=== PATIENT | female | born 1970 | race Caucasian/White ===

== ENCOUNTER 2019-02-28 12:14 | Emergency (ER) | payer BC ==
--- OUTSIDE RECORDS SUMMARY | 2019-02-28 12:20 | XMS REPORT | Continuity of Care Document ---
:1970 External Reference #:[id number] Author Name Leonila Foley MD Address [address] [place] [address] Problems Active Problems Provider Date Asthma without status asthmaticus Onset: 10/28/2018 Family history of polyp of colon Onset: 10/28/2018 Right lower quadrant pain Onset: 10/28/2018 Inactive Problems Abdominal pain Onset: 10/03/2018 Inactive: 10/03/2018 Right upper quadrant pain Onset: 10/01/2018 Inactive: 10/01/2018 Social History Type Date Description Comments Sex Unknown Tobacco Use Start: Unknown Patient has never smoked Smoking Status Reviewed: 02/22/19 Patient has never smoked Allergies, Adverse Reactions, Alerts Description No Known Drug Allergies Medications Active Medications SIG Qnty Indications Ordering Provider Date Albuterol Sulfate Inhale 2 Puffs 25.5units Leonila Foley, 2018 HFA By Mouth Every MD 108(90Base) 4 Hours as mcg/Act Aerosol Needed Flovent HFA Inhalation; 36units Unknown 08/26/2017 Inhale 2 Puffs 110mcg/Act Aerosol By Mouth Two Times Daily Lulu Allergy 1 daily Oral 30tabs Unknown 10/27/2014 180mg Tablets Clobetasol Unknown Propionate 0.05% Ointment History Medications Peg 3350/Electrolytes use as directed 4000units R10.31 Unknown 10/28/2018 - 240gm 02/15/2019 Solution Rec Immunizations CPT Code Status Date Vaccine Lot # [id number] Given 12/19/2018 Flu < 65 years 27818 Given 07/22/2018 MMR Vaccine 06057 Given 12/02/2017 Influenza Virus Vaccine, Quadrivalent, Split, Im Use 0.25ML 66221 Given 12/02/2017 Influenza Virus Vaccine, Quadrivalent, Split, Im Use 0.25ML 00165 Given 12/02/2017 Influenza Virus Vaccine, Quadrivalent, Split, Im Use 0.25ML 86575 Given 12/02/2017 Flu < 65 years 84140 Given 12/02/2017 Influenza Virus Vaccine, Quadrivalent, Split, Preservative Free 32888 Given 12/02/2017 Flumist 82749 Given 12/02/2017 Flu High Dose 02309 Given 12/02/2017 Influenza Virus Vaccine, Split, Preserv Free, Intradermal Use 96573 Given 01/12/2017 Influenza Virus Vaccine, Split, Preserv Free, Intradermal Use 84019 Given 01/12/2017 Flu High Dose 29281 Given 01/12/2017 Flumist 94352 Given 01/12/2017 Influenza Virus Vaccine, Quadrivalent, Split, Preservative Free 88065 Given 01/12/2017 Flu < 65 years 84970 Given 01/12/2017 Influenza Virus Vaccine, Quadrivalent, Split, Im Use 0.25ML 55956 Given 01/12/2017 Influenza Virus Vaccine, Quadrivalent, Split, Im Use 0.25ML 90538 Given 01/12/2017 Influenza Virus Vaccine, Quadrivalent, Split, Im Use 0.25ML 58401 Given 12/17/2015 Influenza Virus Vaccine, Quadrivalent, Split, Im Use 0.25ML 77911 Given 12/17/2015 Influenza Virus Vaccine, Quadrivalent, Split, Im Use 0.25ML 50450 Given 12/17/2015 Influenza Virus Vaccine, Quadrivalent, Split, Im Use 0.25ML 39832 Given 12/17/2015 Flu < 65 years 28990 Given 12/17/2015 Influenza Virus Vaccine, Quadrivalent, Split, Preservative Free 59576 Given 12/17/2015 Flumist 36209 Given 12/17/2015 Flu High Dose 25359 Given 12/17/2015 Influenza Virus Vaccine, Split, Preserv Free, Intradermal Use 82216 Given 12/31/2014 Flu High Dose 84918 Given 12/31/2014 Flumist 92856 Given 12/31/2014 Influenza Virus Vaccine, Quadrivalent, Split, Preservative Free 73449 Given 12/31/2014 Flu < 65 years 97524 Given 12/31/2014 Influenza Virus Vaccine, Quadrivalent, Split, Im Use 0.25ML 00469 Given 12/31/2014 Influenza Virus Vaccine, Quadrivalent, Split, Im Use 0.25ML 86265 Given 12/31/2014 Influenza Virus Vaccine, Quadrivalent, Split, Im Use 0.25ML 75085 Given 09/13/2013 Hepatitis B >=20 yrs, Energix or Recombivax 13682 Given 06/07/2013 Hepatitis B >=20 yrs, Energix or Recombivax 89119 Given 05/03/2013 Hepatitis B >=20 yrs, Energix or Recombivax 05547 Given 12/11/2012 Influenza Virus Vaccine Split Virus Intramuscular Use 0.5ML 54006 Given 12/11/2012 Flu High Dose 48053 Given 12/11/2012 Flumist 13085 Given 12/11/2012 Influenza Virus Vaccine, Quadrivalent, Split, Preservative Free 27455 Given 12/11/2012 Flu < 65 years 53084 Given 12/11/2012 Influenza Virus Vaccine, Quadrivalent, Split, Im Use 0.25ML 38034 Given 12/11/2012 Influenza Virus Vaccine, Quadrivalent, Split, Im Use 0.25ML 04242 Given 12/11/2012 Influenza Virus Vaccine, Quadrivalent, Split, Im Use 0.25ML 31964 Given 12/11/2012 Influenza Virus Vaccine, Quadrivalent, Split, Im Use 0.25ML 98478 Given 10/30/2011 Tdap - Boostrix/Adacel 24990 Given 12/05/2009 Influenza Virus Vaccine, Quadrivalent, Split, Im Use 0.25ML 05867 Given 12/05/2009 Influenza Virus Vaccine Split Virus Intramuscular Use 0.5ML 76791 Given 01/25/2009 Influenza Virus Vaccine Split Virus Intramuscular Use 0.5ML 62670 Given 01/25/2009 Influenza Virus Vaccine, Quadrivalent, Split, Im Use 0.25ML 24434 Given 01/25/2009 Influenza Virus Vaccine, Quadrivalent, Split, Im Use 0.25ML 84962 Given 01/05/2009 Influenza Virus Vaccine, Quadrivalent, Split, Im Use 0.25ML 15963 Given 01/05/2009 Influenza Vaccine, Pandemic Formulation, H1N1 17953 Given 01/05/2009 H1N1 Immunization Admin (Intramuscular,Intranasal) Inc Counseling 73511 Given 04/06/2008 Pneumovax - for >=2years - PPSV23 79697 Given 01/16/2008 Influenza Virus Vaccine, Quadrivalent, Split, Im Use 0.25ML 83730 Given 01/15/2007 Influenza Virus Vaccine, Quadrivalent, Split, Im Use 0.25ML Vital Signs Date Vital Result Comment 02/22/2019 2:49pm BP Systolic 102 mmHg BP Diastolic 66 mmHg Height 67 inches 5'7" Weight 146.00 lb Heart Rate 86 /min Body Temperature 98.9 F O2 % BldC Oximetry 99 % BMI (Body Mass Index) 22.9 kg/m2 10/01/2018 2:20pm BP Systolic 110 mmHg Height 67.00 inches 5'7.00" Weight 142.00 lb Heart Rate 89 /min Body Temperature 97.4 F O2 % BldC Oximetry 98 % BMI (Body Mass Index) 22.24 kg/m2 Results Test Acquired Date Facility Test Result H/L Range Note Connective Tissue 02/22/2019 [facility] Anti-Nuclear 0.2 U 1, [address] [place] [address] [phone] Cyclic Citrullinated Peptide <15.6 U 3 Interpretation See Comment 4 Laboratory test 11/06/2018 [facility] Surgical SEE RESULT [address] [place] [address] [phone] Colonoscopy 11/06/2018 N2N/CCD Import Colonoscopy Hyper polyp Bilirubin-Ua 10/01/2018 N2N/CCD Import Bilirubin-Ua Negative Negative - Negative Qual Blood-Ua 10/01/2018 N2N/CCD Import Blood-Ua Negative Negative - Negative Qual Glucose-Ua 10/01/2018 N2N/CCD Import Glucose-Ua Negative Negative - Negative Qual Ketones-Ua 10/01/2018 N2N/CCD Import Ketones-Ua Negative Negative - Negative Qual Leuk Est-Ua 10/01/2018 N2N/CCD Import Leuk Est-Ua Negative Negative - Negative Qual Nitrite-Ua 10/01/2018 N2N/CCD Import Nitrite-Ua Negative Negative - Negative Qual PH-Ua 10/01/2018 N2N/CCD Import PH-Ua 6.0 _ 5 - 7 Protein-Ua 10/01/2018 N2N/CCD Import Protein-Ua Negative SP Grav-Ua 10/01/2018 N2N/CCD Import SP Grav-Ua 1.015 _ 1.003 - 1.030 Urobilinogen-Ua 10/01/2018 N2N/CCD Import Urobilinogen-Ua neg Negative - Negative 1 [id number] 2 REFERENCE VALUE <=1.0 (Negative) 3 REFERENCE VALUE <20.0 (Negative) 4 Tests for antibodies to dsDNA and YANG antigens are not performed automatically unless the RED result is > or = 3.0 U. Studies performed at [facility] indicate that positive RED results <3.0 U are rarely accompanied by positive second order tests. Test Performed by: [facility] [address] [place] [address] Bullion Weigher: Jd Miller M.D. Ph.D.; CLIA# [id number] 5 SEE RESULT BELOW Name: HENRY PETERSON : [address]: Marco Carey DO Acct: [id number] Unit: [id number] AGE: 47 Location: ENDO Re11/06/18 SEX: F Status: DEP REF SPEC: [id number] SAMANTHA: 11/06/18- SUBM DR: Marco CareyDO REQ: [id number] RECD: 11/06/18 STATUS: JHON KURTZ DR: Juan Cleaning MD _ ORDERED: LEVEL 4/2 FINAL DIAGNOSIS 1. Colon, cecum, biopsy: -- Hyperplastic polyps (3 fragments). 2. Colon, rectum, biopsy: -- Hyperplastic polyp. CLINICAL HISTORY Right upper quadrant pain POST-OPERATIVE DIAGNOSIS Colonoscopy: to terminal ileum; MCKENZIE test; biopsy polypectomy (2); good prep GROSS DESCRIPTION 1. The specimen is received in formalin labeled, Biopsy Cecal Polyps (Two) , and consists of a 1.0 x 0.4 x 0.2 cm aggregate of chase-pink irregular to polypoid soft tissue fragments, which is entirely submitted in one cassette. 2. The specimen is received in formalin labeled, Biopsy Rectal Polyp, and consists of a 0.4 x 0.3 x 0.3 cm chase-white irregular to polypoid soft tissue fragments, which is entirely submitted in one cassette. Signed by and Reported on: Prabhakar Ochoa MD [address] OF REPORT DEPARTMENT OF PATHOLOGY, [address] [place] [address] Prabhakar Ochoa M.D. Director [facility] # [id number] Procedures Description No Information Available Medical Devices Description No Information Available Encounters Type Date Location Provider Dx Diagnosis Office Visit 02/22/2019 3:00p [facility] Leonila Foley MD R21 Rash and other nonspecific skin eruption Assessments Date Code Description Provider 02/22/2019 R21 Rash and other nonspecific skin eruption Leonila Foley MD Plan of Treatment No Information Available Functional Status Description No Information Available Mental Status Description No Information Available Referrals Description No Information Available
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
[2019-02-28] MEDS ORDERED: Ondansetron ODT TAB* 4 MG PO ONE (13:12)
[2019-02-28] MEDS ORDERED: Acetaminophen TAB* 325 MG PO ONE (13:19)
[2019-02-28 13:21] VITALS: BP 120/72
[2019-02-28] MEDS ORDERED: Meclizine TAB* 12.5 MG PO ONE (14:02)
[2019-03-02 23:56] LABS: Varicella Zoster Result Positive (Negative)
--- NOTE | 2019-03-03 13:58 | UC ---
- Progress Note Progress Note: patient cultures + for zoster, on valtrex, continue treatment. -Yue Palacio PAC Course/Dx - Diagnoses Provider Diagnoses: Dermatitis, Side effect of medication Discharge ED - Sign-Out/Discharge Documenting (check all that apply): Patient Departure All imaging exams completed and their final reports reviewed: No Studies - Discharge Plan Condition: Stable Disposition: HOME Prescriptions: Meclizine TAB* [Antivert 12.5 TAB*] 25 mg PO TID PRN 10 Days #30 tab PRN Reason: Dizziness Ondansetron ODT TAB* [Zofran 4 MG Odt TAB*] 4 mg PO Q6H PRN 7 Days #30 tab.odt PRN Reason: Nausea ValACYclovir (*) [Valtrex 1 GM(*)] 1 gm PO TID 7 Days #21 tab Patient Education Materials: Shingles (ED), Dermatitis (ED) Referrals: Juan Cleaning MD [Primary Care Provider] - 1 Day Kanchan Gonzales [Medical Doctor] - 1 Day Additional Instructions: Please start taking the medication as prescribed to the pharmacy . Stop minocycline for now. Discuss with your PMD to start antibiotics if needed Continue topical clobetasol . Someone will call her with test results of your skin lesion and if negative, you can stop valtrex. Follow up with your primary care doctor tomorrow . 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 Patients blood pressure is high in Urgent care today , plan follow up with PCP for better control Return to Urgent care / ER if symptoms get worse. - Billing Disposition and Condition Condition: STABLE Disposition: Home
== END 2019-02-28 14:56 | disposition home or self-care (01) ==
LOC: UCEAST 12:14
DX: L25.8 Unspecified contact dermatitis due to other agents (principal); J45.909 Unspecified asthma, uncomplicated; L90.0 Lichen sclerosus et atrophicus; R05 Cough; R11.0 Nausea; T36.95XA Adverse effect of unspecified systemic antibiotic, initial encounter; Y92.9 Unspecified place or not applicable
CPT/HCPCS: 87798; 99212; A9270-GY; G0463